=== PATIENT | male | born 1940 | race Caucasian/White ===

== ENCOUNTER 2016-06-04 12:08 | Inpatient (IN) | payer OTHER ==
[2016-06-04] MEDS ORDERED: NS 1,000 ML IV ONE (13:11)
--- NOTE | 2016-06-04 13:15 | EDPHY ---
H & P Stated Complaint: fall/flu like symptoms/?syncope/?loc hit head and r posterior ribs Time Seen by Provider: 06/04/16 12:44 HPI/ROS: CHIEF COMPLAINT: Right-sided rib pain HISTORY OF PRESENT ILLNESS: Patient is a 76-year-old man who comes to the emergency department with his complaining of right-sided posterior rib pain. He states that he was trying to get out of the bathtub last night when he slipped and fell back into the bathtub. He hit the right side of his posterior ribs. He has had pain in that area since. He was hypoxic at triage. He tenderness at the area but no contusions or lacerations. He also complains of generalized weakness and fatigue over the last 7 days. He states that he has been suffering from sinus congestion and a sore throat. No fevers. Mild nausea and decreased appetite but no abdominal pain, vomiting or diarrhea. He denies syncope last night or palpitations or chest pain. He denies shortness of breath. REVIEW OF SYSTEMS: Constitutional: denies: chills, fever, recent illness, recent injury EENTM: See HPI Respiratory: See HPI Cardiac: denies: chest pain, irregular heart rate, lightheadedness, palpitations Gastrointestinal/Abdominal: denies: abdominal pain, diarrhea, nausea, vomiting, blood streaked stools Genitourinary: denies: dysuria, frequency, hematuria, pain Musculoskeletal: See HPI Skin: denies: lesions, rash, jaundice, bruising Neurological: denies: headache, numbness, paresthesia, tingling, dizziness, weakness Hematologic/Lymphatic: denies: blood clots, easy bleeding, easy bruising Immunologic/allergic: denies: HIV/AIDS, transplant EXAM: GENERAL: Well-appearing, well-nourished and in no acute distress. HEAD: Atraumatic, normocephalic. EYES: Pupils equal round and reactive to light, extraocular movements intact, sclera anicteric, conjunctiva are normal. ENT: TMs normal, sinus congestion , erythematous pharynx. Moist mucous membranes. NECK: Normal range of motion, supple without lymphadenopathy or JVD. LUNGS: Breath sounds clear to auscultation bilaterally and equal. No wheezes rales or rhonchi. HEART: Regular rate and rhythm without murmurs, rubs or gallops. ABDOMEN: Soft, nontender, normoactive bowel sounds. No guarding, no rebound. No masses appreciated. BACK: No CVA tenderness, no spinal tenderness, step-offs or deformities EXTREMITIES: Normal range of motion, no pitting or edema. No clubbing or cyanosis. NEUROLOGICAL: Cranial nerves II through XII grossly intact. Normal speech, normal gait. 5/5 strength, normal movement in all extremities, normal sensation PSYCH: Normal mood, normal affect. SKIN: Warm, dry, normal turgor, no visible rashes or lesions. Source: Patient Exam Limitations: No limitations - Personal History Current Tetanus Diphtheria and Acellular Pertussis (TDAP): Yes - Medical/Surgical History Hx Asthma: No Hx Chronic Respiratory Disease: No Hx Diabetes: No Hx Cardiac Disease: No Hx Renal Disease: No Hx Cirrhosis: No Hx Alcoholism: No Hx HIV/AIDS: No Hx Splenectomy or Spleen Trauma: No Other PMH: prostate cancer - Family History Significant Family History: Hypertension - Social History Smoking Status: Never smoked Alcohol Use: None Drug Use: None Constitutional: Initial Vital Signs Temperature (C) 36.8 C 06/04/16 12:27 Heart Rate 74 06/04/16 12:27 Respiratory Rate 18 06/04/16 12:27 Blood Pressure 111/54 L 06/04/16 12:27 O2 Sat (%) 84 L 06/04/16 12:27 O2 Delivery Mode Room Air Allergies/Adverse Reactions: lactose [Lactose] Allergy (Intermediate, Verified 04/18/09 18:31) GI UPSET CIGARETTE SMOKE Allergy (Intermediate, Uncoded 02/14/09 16:28) Dyspnea TODD Allergy (Intermediate, Uncoded 02/14/09 16:28) Dyspnea Home Medications: Medication Instructions Recorded Azelastine 06/04/16 Cabergoline 06/04/16 Dutasteride 06/04/16 Estradiol 06/04/16 Firmagon 06/04/16 Fluticasone Hfa 110 Mcg 06/04/16 Leukine 06/04/16 Metformin HCl 06/04/16 Vitamins And Supplements 06/04/16 Xtandi 06/04/16 Zofran 06/04/16 Medical Decision Making - Diagnostics EKG Interpretation: An EKG obtained and was read and documented in trace view. Please see trace view for full reading and report. Sinus rhythm, no acute ischemic changes, Pac , similar to previous Imaging: X-ray: A was obtained. I viewed the images myself on the PACS system. My interpretation of the images is: No pneumonia, left-sided lobectomy unchanged, no pneumothorax, to the posterior rib fractures. The radiologist interpretation is the same. ED Course/Re-evaluation: Top of 10:00 p.m. we discussed the patient's rib fractures. He remains hypoxic at off of oxygen. He does not appear to have pneumonia on his chest x-ray. He does have an upper respiratory infection. The this is likely combining with his fractures to cause the hypoxic. I will start him on antibiotics. I discussed the case with the OR nurse for Dr. Wallace the and will admit to the trauma service. Differential Diagnosis: Partial list of the Differential diagnosis considered include but were not limited to; the pneumonia, rib fractures, sinus infection and although unlikely based on the history and physical exam, I also considered sepsis, pneumothorax, PE. - Data Points Laboratory Results: Laboratory Results 06/04/16 13:30 06/04/16 13:30 06/04/16 06/04/16 06/04/16 13:56 13:56 13:30 WBC RBC Hgb Hct MCV MCH MCHC RDW Plt Count MPV Neut % (Auto) Lymph % (Auto) Rich % (Auto) Eos % (Auto) Baso % (Auto) Nucleat RBC Rel Count Absolute Neuts (auto) Absolute Lymphs (auto) Absolute Monos (auto) Absolute Eos (auto) Absolute Basos (auto) Absolute Nucleated RBC Immature Gran % Seg Neutrophils % Band Neutrophils % Lymphocytes % Monocytes % Eosinophils % Immature Gran # Absolute Seg Neuts Absolute Band Neuts Absolute Lymphocytes Absolute Monocytes Absolute Eosinophils Platelet Estimate Giant Platelets PT INR APTT Sodium 126 mEq/L L mEq/L (134-144) Potassium 4.2 mEq/L mEq/L (3.5-5.2) Chloride 93 mEq/L L mEq/L (97-110) Carbon Dioxide 25 mEq/l mEq/l (22-31) Anion Gap 8 mEq/L mEq/L (8-16) BUN 20 mg/dL mg/dL (7-23) Creatinine 0.8 mg/dL mg/dL (0.7-1.3) Estimated GFR > 60 Glucose 125 mg/dL H mg/dL (70-100) Calcium 8.5 mg/dL mg/dL (8.5-10.4) Influenza Typ A,B (DFA) NEGATIVE FOR FLU (NEGATIVE) Group A Strep Screen NEGATIVE (NEGATIVE) 06/04/16 06/04/16 13:30 13:30 WBC 13.80 10^3/uL H 10^3/uL (3.80-9.50) RBC 3.48 10^6/uL L 10^6/uL (4.40-6.38) Hgb 11.4 g/dL L g/dL (13.7-17.5) Hct 33.0 % L % (40.0-51.0) MCV 94.8 fL fL (81.5-99.8) MCH 32.8 pg pg (27.9-34.1) MCHC 34.5 g/dL g/dL (32.4-36.7) RDW 13.1 % % (11.5-15.2) Plt Count 155 10^3/uL 10^3/uL (150-400) MPV 10.0 fL fL (8.7-11.7) Neut % (Auto) Not Reported Lymph % (Auto) Not Reported Rich % (Auto) Not Reported Eos % (Auto) Not Reported Baso % (Auto) Not Reported Nucleat RBC Rel Count 0.0 % % (0.0-0.2) Absolute Neuts (auto) Not Reported Absolute Lymphs (auto) Not Reported Absolute Monos (auto) Not Reported Absolute Eos (auto) Not Reported Absolute Basos (auto) Not Reported Absolute Nucleated RBC 0.00 10^3/uL 10^3/uL (0-0.01) Immature Gran % Not Reported Seg Neutrophils % 78 % % Band Neutrophils % 8 % % Lymphocytes % 3 % % Monocytes % 9 % % Eosinophils % 2 % % Immature Gran # Not Reported Absolute Seg Neuts 10.76 10^/uL H 10^/uL (1.70-6.50) Absolute Band Neuts 1.10 10^3/uL H 10^3/uL (0.00-0.70) Absolute Lymphocytes 0.41 10^3/uL L 10^3/uL (1.00-3.00) Absolute Monocytes 1.24 10^3/uL H 10^3/uL (0.30-0.80) Absolute Eosinophils 0.28 10^3/uL 10^3/uL (0.03-0.40) Platelet Estimate ADEQUATE (ADEQ) Giant Platelets PRESENT H PT 14.5 SEC SEC (12.0-15.0) INR 1.14 (0.83-1.16) APTT 34.2 SEC SEC (23.0-38.0) Sodium Potassium Chloride Carbon Dioxide Anion Gap BUN Creatinine Estimated GFR Glucose Calcium Influenza Typ A,B (DFA) Group A Strep Screen Medications Given: Discontinued Medications Azithromycin (Zithromax) 500 mg PO EDNOW ONE PRN Reason: Protocol Stop: 06/04/16 14:14 Last Admin: 06/04/16 14:28 Dose: 500 mg Sodium Chloride (Ns) 1,000 mls @ 0 mls/hr IV ONCE ONE PRN Reason: Wide Open Stop: 06/04/16 13:12 Last Admin: 06/04/16 13:35 Dose: 1,000 mls Departure - Departure Disposition: [facility] Inpatient Acute Clinical Impression: Ribs, multiple fractures Qualifiers: Encounter type: initial encounter Fracture type: closed Laterality: right Qualified Code(s): S22.41XA - Multiple fractures of ribs, right side, initial encounter for closed fracture Sinus infection Qualifiers: Sinusitis location: unspecified location Chronicity: acute Recurrence: non- recurrent Qualified Code(s): J01.90 - Acute sinusitis, unspecified Condition: Fair
[2016-06-04 13:47] LABS: ADD MORPH? NO; ADD SCAN? YES; ATYPICAL LYMPHOCYTE FLAG 0 (0-99); FRAGMENT RBC FLAG 0 (0-99); HEMOGLOBIN 11.4 g/dL (13.7-17.5); LIPEMIA HEMOLYSIS FLAG 90 (0-99); MEAN CELL HEMOGLOBIN 32.8 pg (27.9-34.1); MEAN CELL HEMOGLOBIN CONCENTR. 34.5 g/dL (32.4-36.7); MEAN CELL VOLUME 94.8 fL (81.5-99.8); PLATELET CLUMPS FLAG 0 (0-99); PLATELET COUNT 155 10^3/uL (150-400); RED BLOOD CELL COUNT 3.48 10^6/uL (4.40-6.38); RED CELL DISTRIBUTION WIDTH 13.1 % (11.5-15.2)
[2016-06-04 13:49] LABS: LEFT SHIFT FLG 300 (0-99)
[2016-06-04 13:50] LABS: INR 1.14 (0.83-1.16); PROTIME(PATIENT) 14.5 SEC (12.0-15.0)
[2016-06-04 13:51] LABS: APTT 34.2 SEC (23.0-38.0)
--- NOTE | 2016-06-04 13:59 | CPEKG ---
Heart Rate: 71 RR Interval: 845 P-R Interval: 164 QRSD Interval: 90 QT Interval: 408 QTC Interval: 444 P [place]: 62 QRS [place]: 25 T Wave [place]: -52 EKG Severity - ABNORMAL ECG - EKG Impression: SINUS RHYTHM EKG Impression: MULTIPLE ATRIAL PREMATURE COMPLEXES EKG Impression: NONSPECIFIC T ABNORMALITIES, INFERIOR LEADS EKG Impression: Similar to previous Electronically Signed By: Justin Norris 04-Jun-2016 14:09:49
[2016-06-04 14:11] LABS: ANION GAP 8 mEq/L (8-16); CALCIUM 8.5 mg/dL (8.5-10.4); CARBON DIOXIDE 25 mEq/l (22-31); CHLORIDE 93 mEq/L (97-110); CREATININE 0.8 mg/dL (0.7-1.3); GLOMERULAR FILTRATION RATE > 60; GLUCOSE 125 mg/dL (70-100); POTASSIUM 4.2 mEq/L (3.5-5.2); SODIUM 126 mEq/L (134-144)
[2016-06-04] MEDS ORDERED: AZITHROMYCIN 250 MG TAB PO ONE (14:13)
[2016-06-04 14:33] LABS: ADD DIFF? YES; SCAN POSITIVE
[2016-06-04 14:38] LABS: GIANT PLATELETS PRESENT; PLATELET ESTIMATE ADEQUATE (ADEQ)
[2016-06-04] MEDS ORDERED: ONDANSETRON 4 MG/2 ML VIAL IVP PRN (16:02)
[2016-06-04] MEDS ORDERED: DIAZEPAM 5 MG TAB PO PRN (16:02)
[2016-06-04] MEDS ORDERED: HYDROCODONE/APAP 5/325 TAB PO PRN (16:02)
[2016-06-04] MEDS ORDERED: D5W 1/2 NS 1,000 ML IV SCH (16:15)
[2016-06-04] MEDS ORDERED: [UNRECOGNIZED DRUG - OTHER] SC SCH (16:30)
--- NOTE | 2016-06-04 17:10 | GHP ---
DATE OF ADMISSION: 06/04/2016 CHIEF COMPLAINT: Right-sided chest pain. HISTORY OF PRESENT ILLNESS: This is a 76-year-old male, who was in his bathtub last night. The pat ient states that he recalls falling, he does recall hitting his head and bleeding from his head. He is unclear whether or not he had any loss of consciousness at that time. At any rate, his was at home, she was able to successfully get him out of the bathtub and into bed. He states that he s lept poorly overnight, and this morning, was having a significant amount of right-sided chest pain w ith what appears to be shortness of breath. He subsequently presented to [facility] for further evaluation. On evaluation the patient had a well scabbed over area of punctate ble eding on the left posterior occiput. He also had some right-sided chest tenderness which prompted a chest film, which confirmed right-sided rib fractures, numbering 7th and 8th with a small pleural e ffusion without pneumothorax. He was hypoxic in the emergency department to the 80s, and required s upplemental oxygen. It was because of this, that he is admitted. At this point in time, he endorse s right-sided pain, worse with movement, minimal with activity, 8/10 in worse intensity. It is desc ribed as a sharp pain without radiation. He denies having fevers or chills, although he does have s ome sinus congestion with purulent sputum. PAST MEDICAL HISTORY: Significant for metastatic prostate cancer, multiple recurrent inguinal herni as and interstitial lung disease. PAST SURGICAL HISTORY: Is left-sided partial lung lobectomy, radical prostatectomy, multiple inguin al hernia repairs. CURRENT MEDICATIONS: Please see the medical reconciliation for current up to date medication list. ALLERGIES: Include vinay, cigarette smoke and lactose. PHYSICAL EXAMINATION: VITAL SIGNS: Temperature 37.2, blood pressure 126/71, heart rate 81, and he is 83% on room air, 95% on 3 L. nasal cannula. GENERAL: He is alert and oriented, in no acute dist ress. HEENT: Pupils are equal, round, and reactive to light and accommodation. Extraocular moveme nts are intact. Head: He does have a small scab on the left posterior occiput consistent with his h ead trauma. NECK: Soft, supple, nontender. BACK: C-spine was subsequently cleared in the emergency department . CHEST: Tender to palpation on the right side without crepitus. LUNGS: Clear to auscultation bi laterally. HEART: Regular rhythm. ABDOMEN: Soft, nondistended, nontender. He has incisions on h is belly consistent with his previous surgical history. EXTREMITIES: Warm and well perfused. IMAGING: Chest film which confirms the above rib fractures, in addition to the right-sided small ef fusion, in addition it also confirmed the partial lung resection on the left. LABORATORY DATA: Leukocytosis to 13,000 with a left shift. Chemistries: Low sodium at 126, creatin ine 0.8 and an elevated glucose at 125. ASSESSMENT/PLAN: A 76-year-old male status post mechanical fall, question loss of consciousness. T he patient will be admitted to the trauma service. In addition to the above imaging, I am going to obtain noncontrast CT scan of his head, as he did perseverate somewhat on my exam and did have signi ficant amount of trauma that caused bleeding. We will plan to restart all of his home medications. I have discussed with him the importance of adequate pain control and pulmonary toilet to prevent u nderlying lung infection, especially given the fact that his lung volumes are not 100% normal. He u nderstands this. We will provide him with an incentive spirometer at once so he can begin his pulmo nary toilet immediately. I have asked the Medicine Service also to consult on the patient given his multiple medical comorbidities in assistance in managing them. /[id number]/MODL
[2016-06-04] MEDS: metFORMIN HCL 500 MG TAB PO SCH (17:50)
--- NOTE | 2016-06-04 18:06 | TRAUMAPN ---
Assessment/Plan: Pt declining CT head. I discussed clinical rationale behind imaging and even such he declines completely understanding that the head trauma he sustained could have caused some underlying brain trauma/bleed. CT cancelled per patient request Objective: Vital Signs Temp Pulse Resp BP Pulse Ox 36.8 C 74 16 110/64 94 06/04/16 16:22 06/04/16 17:56 06/04/16 17:56 06/04/16 16:22 06/04/16 17:56 06/03/16 06/04/16 06/05/16 05:59 05:59 05:59 Intake Total 1000 Balance 1000 PT 14.5 SEC (12.0-15.0) 06/04/16 13:30 INR 1.14 (0.83-1.16) 06/04/16 13:30
[2016-06-04] MEDS: NS 1,000 ML IV SCH ×2 (18:47→21:02)
--- NOTE | 2016-06-04 20:16 | GCON ---
DATE OF CONSULTATION: 06/04/2016 REFERRING PHYSICIAN: Jonathan Wallace MD REASON FOR CONSULTATION: Medical management. HISTORY OF PRESENT ILLNESS: Patient is a 76-year-old male with history of metastatic prostate cancer, ILD, presenting after a fall. He was in the tub last night, and slipped. He could not get up due to water being in the tub, and once he was able to get up, he fell a couple times. He denies loss of consciousness or hitting his head. Denies chest pain, shortness of breath, dizziness, or lightheadedness. He came to the emergency room this morning with persistent right-sided chest pain. X-ray in emergency room, showed rib fractures 7th and 8th on the right. His oxygen saturation was in the 80s at that time. Reports pain now 5/10. It is worse with movement. Sharp in nature. Does feel short of breath when moving. Reports upper respiratory symptoms for the past week, including nasal congestion , cough with yellow sputum production. Denies fevers chills or sweats. Has had decreased p.o. intake, as well as weakness. REVIEW OF SYSTEMS: I completed a 10-point review of systems, negative except as noted in HPI. PAST MEDICAL HISTORY: 1. Metastatic prostate cancer currently on chemotherapy. 2. History of atrial fibrillation, status post ablation. 3. ILD. 4. Hypertension. 5. Osteoarthritis. 6. GERD. 7. Controlled diabetes. PAST SURGICAL HISTORY: 1. Radical prostatectomy. 2. Ureteral sling. 3. Right inguinal hernia x2. SOCIAL HISTORY: Lives with in [place]. No illicits, tobacco, or alcohol. ALLERGIES: Lactose, cigarette smoke, vinay. HOME MEDICATIONS: 1. Magnesium complex. 2. Fiber. 3. Iberogast 20 drops daily. 4. Simethicone. 5. MiraLAX. 6. Fish oil 2000 mg daily. 7. Lycopene. 8. Vitamin D3 6000 units daily. 9. Herbal supplements. 10. Lutein at 250 mcg subcu. 11. Zofran. 12. Flonase twice a day. 13. Metformin 1000 mg twice daily. 14. Janneth nasal sprays. 15. Cabergoline 0.5 mg, Saturday, Saturday, Saturday. 16. Estradiol 0.05 transdermal Saturday and . 17. Avodart 0.5 mg daily. 18. Xtandi 160 mg at bedtime. 19. Firmagon 80 mg subcu every 30 days. PHYSICAL EXAM: VITAL SIGNS: Temperature 36.8, blood pressure is 110/64, heart rate 60s, respirations 16, 84% on room air. Now 94% on 3 L. GENERAL: Lying in bed, no acute distress. HEENT: PERRLA. EOMI. CV: Regular rate and rhythm. No murmurs, gallops, or rubs. LUNGS: Diminished breath sounds. Poor respiratory effort secondary to pain. ABDOMEN: Soft, nontender, nondistended. : No suprapubic tenderness. No Bourne. MUSCULOSKELETAL: Tenderness over the right flank pain. SKIN: Warm and dry. Poor skin turgor. MUSCULOSKELETAL: Moving all 4 extremities. NEUROLOGIC: 2 through 12 intact. PSYCHIATRIC: Alert and oriented x3 next. LABORATORY DATA: Sodium 126, potassium 4.2, chloride 93, glucose 125, BUN is 20 , creatinine 0.8. Influenza negative. Group A strep negative. Coagulation studies within normal. WBC 13, hemoglobin 11, hematocrit 33, platelets 155. Chest x-ray, personally reviewed by me, fractures of 7th and 8th ribs. EKG, personally reviewed by me, ST depression in II, aVF and T-wave inversion in III. No old to compare. ASSESSMENT/PLAN: 1. Mechanical fall: due to slipping in tub. Reports increased weakness over the past week, which is likely due to upper respiratory infection. He was influenza negative. PT/OT to evaluate. 2. Hypovolemic, hyponatremia: Sodium is 126 today. Suspect this is due to decreased p.o. intake. Check urine electrolytes, and gentle normal saline, repeat BMP this evening. 3. Acute rib fractures/pain: due to fall. Surgery is assisting with pain control. Continue incentive spirometry. Add NSAIDs if Cr stable. 4. Acute hypoxic respiratory failure: due to splinting given acute pain and rib fractures. Incentive spirometry and ambulation as tolerated. 5. Metastatic prostate cancer: Continue home medications. 6. Controlled diabetes: Continue metformin. 7. Normocytic anemia: H/ H is stable. No evidence of bleeding. 8. ST depression noted on EKG: Patient denies left-sided chest pain. It is acute and reproducible on exam. Will check a troponin. 9. Diet: Regular. 10. Deep venous thrombosis prophylaxis: Lovenox. 11. Disposition: The patient warrants inpatient admission given acute hypoxia and pain. Thank you for this consultation. We will follow along. Please call if any questions. /[id number]/MODL MTDD
[2016-06-04] MEDS: IBUPROFEN 600 MG TAB PO SCH (20:58)
[2016-06-04] MEDS: ENZALUTAMIDE 40 MG PO SCH ×2 (20:59→22:21)
[2016-06-04] MEDS ORDERED: MAGNESIUM COMPLEX PO SCH (21:00)
[2016-06-04 23:09] LABS: ANION GAP 11 mEq/L (8-16); CARBON DIOXIDE 20 mEq/l (22-31); CHLORIDE 95 mEq/L (97-110); CREATININE 0.7 mg/dL (0.7-1.3); GLUCOSE 125 mg/dL (70-100); POTASSIUM 4.7 mEq/L (3.5-5.2); SODIUM 126 mEq/L (134-144); SPECIMEN HEMOLYSIS 105
[2016-06-04 23:10] LABS: CALCIUM 8.5 mg/dL (8.5-10.4); GLOMERULAR FILTRATION RATE > 60
[2016-06-04 23:51] LABS: COLOR YELLOW; LEUKOCYTE ESTERASE,URINE NEGATIVE (NEGATIVE); NITRITE,URINE NEGATIVE (NEGATIVE)
[2016-06-04 23:55] LABS: MUCUS 1+ /lpf (NONE-1+)
[2016-06-05] MEDS: IBUPROFEN 600 MG TAB PO SCH ×2 (04:48→14:10)
[2016-06-05 06:26] LABS: HEMATOCRIT 30.1 % (40.0-51.0); HEMOGLOBIN 10.7 g/dL (13.7-17.5); MEAN CELL HEMOGLOBIN 34.4 pg (27.9-34.1); MEAN CELL HEMOGLOBIN CONCENTR. 35.5 g/dL (32.4-36.7); MEAN CELL VOLUME 96.8 fL (81.5-99.8); RED BLOOD CELL COUNT 3.11 10^6/uL (4.40-6.38); RED CELL DISTRIBUTION WIDTH 13.1 % (11.5-15.2)
[2016-06-05 06:31] LABS: ANION GAP 9 mEq/L (8-16); CARBON DIOXIDE 24 mEq/l (22-31); CHLORIDE 95 mEq/L (97-110); CREATININE 0.7 mg/dL (0.7-1.3); GLOMERULAR FILTRATION RATE > 60; GLUCOSE 104 mg/dL (70-100); SODIUM 128 mEq/L (134-144)
[2016-06-05 07:43] VITALS: RESP 15
--- NOTE | 2016-06-05 07:46 | CPEKG ---
Heart Rate: 75 RR Interval: 800 P-R Interval: 172 QRSD Interval: 90 QT Interval: 380 QTC Interval: 425 P [place]: 68 QRS [place]: 10 T Wave [place]in: -29 EKG Severity - NORMAL ECG - EKG Impression: SINUS RHYTHM EKG Impression: ATRIAL ECTOPY IS ABSENT ON THIS ECG (COMPARED TO PRIOR) Electronically Signed By: Reinaldo Hicks 05-Jun-2016 16:57:26
[2016-06-05] MEDS: metFORMIN HCL 500 MG TAB PO SCH (08:48)
[2016-06-05] MEDS ORDERED: CHOLECALCIFEROL VIT D3 1,000 UNITS TAB PO SCH (09:00)
[2016-06-05] MEDS ORDERED: LYCOPENE PO SCH (09:00)
[2016-06-05] MEDS ORDERED: OMEGA-3 FATTY ACIDS 1,000 MG CAP PO SCH (09:00)
[2016-06-05] MEDS ORDERED: DUTASTERIDE 0.5 MG CAP PO SCH (09:00)
[2016-06-05] MEDS ORDERED: ENOXAPARIN 40 MG/0.4 ML SYR SC SCH (09:00)
[2016-06-05] MEDS: NS 1,000 ML IV SCH (09:38)
[2016-06-05 14:54] VITALS: BP 104/58; PULSE 78; TEMP 98.4; O2SAT 93
--- NOTE | 2016-06-05 20:24 | HOSPPROG ---
Hospitalist Progress Note Assessment/Plan: # hypovolemic hyponatremia - improved slightly overnight with IVF - 128 this am - no sx -continue to monitor # hypoxic resp failure 2/2 multiple rib fractures - CXR (personally reviewed and interpreted) no PTX-stable fx oxygen saturations 93% on 3L - will likely need O2 at dc - cont IS - cont pain control # proph - ambulating # diet - regular # dispo - pending trauma surgery clearance - pt stable for medicine standpoint I have discussed the case with RN - encourage IS - pt taking good PO Subjective: feels much better today Objective: Vital Signs Temp Pulse Resp BP Pulse Ox 36.9 C 78 15 104/58 L 93 06/05/16 14:53 06/05/16 14:53 06/05/16 14:53 06/05/16 14:53 06/05/16 14:53 Laboratory Results 06/05/16 04:45 06/05/16 04:45 06/04/16 06/05/16 06/06/16 05:59 05:59 05:59 Intake Total 900 Output Total 800 Balance 100 PT 14.5 SEC (12.0-15.0) 06/04/16 13:30 INR 1.14 (0.83-1.16) 06/04/16 13:30 - Physical Exam Constitutional: appears nourished Eyes: anicteric sclera Cardiovascular: regular rate and rhythym Respiratory: no respiratory distress, reduced air movement, No expiratory wheeze Gastrointestinal: normoactive bowel sounds, soft, non-tender abdomen Genitourinary: no bladder fullness Skin: warm Musculoskeletal: No asymmetric calves Neurologic: AAOx3 Psychiatric: interacting appropriately, not anxious Lymph, Heme, Immunologic: no cervical LAD ICD10 Worksheet Patient Problems: Problems Problem Status Onset Ribs, multiple fractures Acute Sinus infection Acute
--- NOTE | 2016-06-05 20:35 | TRAUMAPN ---
Assessment/Plan: 76 yo s/p fall with R 7/8 rib fx Desires to go home Pain controlled without narcotics S: Sitting in chair ordering breakfast Objective: Vital Signs Temp Pulse Resp BP Pulse Ox 36.9 C 78 15 104/58 L 93 06/05/16 14:53 06/05/16 14:53 06/05/16 14:53 06/05/16 14:53 06/05/16 14:53 Laboratory Results 06/05/16 04:45 06/05/16 04:45 06/04/16 06/05/16 06/06/16 05:59 05:59 05:59 Intake Total 900 Output Total 800 Balance 100 PT 14.5 SEC (12.0-15.0) 06/04/16 13:30 INR 1.14 (0.83-1.16) 06/04/16 13:30 Physical Exam - Physical Exam General Appearance: WD/WN, alert, no apparent distress EENT: PERRL/EOMI, normal ENT inspection Neck: non-tender, full range of motion Respiratory: chest non-tender, lungs clear, normal breath sounds Cardiac/Chest: normal peripheral pulses Abdomen: normal bowel sounds, non-tender, soft
[2016-06-06] MEDS ORDERED: CABERGOLINE 0.5 MG TAB PO SCH (08:00)
[2016-06-07] MEDS ORDERED: ESTRADIOL VIVELLE 0.05 MG PATCH TD SCH (08:00)
== END 2016-06-05 17:13 | disposition home or self-care (01) | DRG 183 ==
LOC: F3N 14:49 → OBSVTOIN 16:02
PROVIDERS: ADMIT Surgery; ATTEND Surgery
DX: S22.41XA Multiple fractures of ribs, right side, initial encounter for closed fracture (principal); J96.01 Acute respiratory failure with hypoxia; E87.1 Hypo-osmolality and hyponatremia; C61 Malignant neoplasm of prostate; W16.212A Fall in (into) filled bathtub causing other injury, initial encounter; Y93.E1 Activity, personal bathing and showering; Y92.012 Bathroom of single-family (private) house as the place of occurrence of the external cause; E11.9 Type 2 diabetes mellitus without complications; I10 Essential (primary) hypertension; K21.9 Gastro-esophageal reflux disease without esophagitis; D64.9 Anemia, unspecified; E86.1 Hypovolemia; Z79.84 Long term (current) use of oral hypoglycemic drugs
CPT/HCPCS: 92523-GN; 97161-GP; 97165-GO; G8978-GP-CI; G8979-GP-CI; G8980-GP-CI; G8987-GO-CI; G8988-GO-CI; G8989-GO-CI; G9168-GN-CJ; G9169-GN-CI; J1650; J8515